=== PATIENT | female | born 1965 | race Caucasian/White ===

== ENCOUNTER → 2016-09-11 | Outpatient (CLI) | payer BC ==
[~2016-09-11] MED LIST: BIRTH CONTROL PO
== END ==
LOC: MC.RAD 07:00
DX: Z12.31 Encounter for screening mammogram for malignant neoplasm of breast (principal)

== ENCOUNTER → 2017-11-09 | Outpatient (CLI) | payer BC | LOC: MC.RAD 06:59 | DX: Z12.31 Encounter for screening mammogram for malignant neoplasm of breast (principal) ==

== ENCOUNTER → 2018-07-09 | Outpatient (CLI) | payer BC | LOC: COL.RAD 07-01 11:15 | DX: N92.1 Excessive and frequent menstruation with irregular cycle (principal); N85.8 Other specified noninflammatory disorders of uterus ==

== ENCOUNTER 2018-12-03 06:00 | Day surgery (SDC) | payer BC ==
[~2018-12-03] VITALS: Ht 170.2 cm; Wt 94.3 kg
--- NOTE | 2018-12-03 06:20 | NUR ---
PATIENT AMBULATED TO B[place] 1 WITHOUT DIFFICULTY. ALERT AND ORIENTED. VITAL SIGNS OBTAINED, WNL. ALL CONSENTS REVIEWED AND SIGNED. HEART SOUNDS REGULAR, LUNG SOUNDS CLEAR, BOWEL SOUNDS ACTIVE. CALL NGUYEN WITHIN REACH, WILL CONTINUE TO MONITOR.
[2018-12-03 06:27] VITALS: BP 136/85; PULSE 85; TEMP 98.3
[2018-12-03] MEDS ORDERED: VOLTAREN GEL 1%1 TU TP (06:41)
[2018-12-03] MEDS ORDERED: SYNTHROID0.137 MG PO (06:42)
[2018-12-03] MEDS ORDERED: AMOXICILLIN 8751 TAB PO (06:43)
[2018-12-03 07:30] VITALS: BP 131/79; PULSE 84; TEMP 97.5
--- NOTE | 2018-12-03 07:30 | NUR ---
pt to [place] [facility] from endo lab, walked to chair, in room, pt sips on water, call light in reach
[2018-12-03 07:45] VITALS: BP 131/79; PULSE 84
[2018-12-03 08:00] VITALS: BP 127/83; PULSE 80
--- NOTE | 2018-12-03 08:00 | NUR ---
con't same, Dr here at 0815 to talk with pt and . iv dc'd intact, pt up and dressed
--- NOTE | 2018-12-03 08:30 | NUR ---
pt up in room dressed, reviewed discharge inst. on followup call for biopsy results, activity and precautions after procedure with verbal understanding. pt discharged via w/c to car with staff and
== END 2018-12-03 08:30 | disposition home or self-care (01) ==
LOC: SDCO 06:00
DX: Z12.11 Encounter for screening for malignant neoplasm of colon (principal); D12.5 Benign neoplasm of sigmoid colon; Z86.010 Personal history of colon polyps; Z83.71 Family history of colonic polyps; Z80.0 Family history of malignant neoplasm of digestive organs; Z88.5 Allergy status to narcotic agent; Z88.2 Allergy status to sulfonamides
CPT/HCPCS: J2250; J2405; J3010; J7030

== ENCOUNTER → 2019-07-06 | Outpatient (CLI) | payer BC ==
[~2019-07-06] MED LIST changes: +AMOXICILLIN 8751 TAB PO; +SYNTHROID0.137 MG PO; +VOLTAREN GEL 1%1 TU TP
== END ==
LOC: MC.RAD 06-30 08:00
DX: Z12.31 Encounter for screening mammogram for malignant neoplasm of breast (principal)

== ENCOUNTER 2020-02-15 10:19 | Inpatient (IN) | payer BC ==
[~2020-02-15] VITALS: Ht 170.2 cm; Wt 92.6 kg
[2020-02-15 13:46] VITALS: BP 133/77; PULSE 86; TEMP 97.8
[2020-02-15] MEDS ORDERED: ESTRACE0.5 MG PO (13:49)
[2020-02-15] MEDS ORDERED: NEURONTIN100 MG/CAP PO (13:50)
[2020-02-15] MEDS ORDERED: TYLENOL 500MG500 MG PO (13:53)
[2020-02-15] MEDS ORDERED: CLARITIN 1010 MG/TAB PO (13:53)
[2020-02-15] MEDS ORDERED: FLEXERIL 1010 MG/TAB PO (13:54)
[2020-02-15] MEDS ORDERED: ROXICODONE 55 MG/TAB PO (13:55)
[2020-02-15] MEDS ORDERED: LIDODERM 5% PATC1 EA TP (13:57)
[2020-02-15] MEDS ORDERED: MIRALAX PA17 GM/Dose PO (13:58)
[2020-02-15] MEDS ORDERED: LOVENOX 4040 MG/0.4 SQ (13:59)
[2020-02-15] MEDS ORDERED: SYNTHROID0.125 MG/T PO (14:00)
[2020-02-15 16:53] VITALS: BP 135/71; PULSE 88; TEMP 98.8
[2020-02-16 05:09] VITALS: BP 134/72; PULSE 95; TEMP 99
--- NOTE | 2020-02-16 10:07 | NUR ---
Pt awake and alert upon entry, has some C/O pain, medications given for relief, shift assessments complete, left Pt call light in reach, sitting up in the recliner.
--- NOTE | 2020-02-16 12:21 | NUR ---
Pt has C/O breakthrough pain, given IV pain medications for relief.
[2020-02-16 16:12] VITALS: BP 120/78; PULSE 94; TEMP 99.7; TEMP 997.7
--- NOTE | 2020-02-16 16:20 | NUR ---
SW met with the patient to complete initial intake, as the patient is new to [facility]. The patient lives [place] [address] with her , Aguila (ph#[phone]). She reports independence with ADLs and that she may have a walker at home. She states that her mother has canes that she can use, if needed. The patient's PCP is Dr. Gayathri Alvarado and she receves her medications at [facility]. She reports no difficulties obtaining her meds. The patient reports that she may have advanced directives completed, but is unsure. She states that she would have designated her or one of her sisters. The patient plans to return home with her upon discharge. SW to continue to follow to ensure a safe discharge.
--- NOTE | 2020-02-16 21:00 | NUR ---
CHANGED DRSG UNDER LT RT BREAST INCISION. WELL APPROXIMATED. KM INTACT. OLD CHEST TUBE SITE STILL MOIST. OLD DRSG'S DAMP WITH ORTIZ OLD BLOOD DRG. NEW OCCLUSIVE DRSG TO CT SITE AND GAUZE DRSG UNDER RT BREAST. ZA WELL. ABRASION TO LT GROIN MOIST. TELFA DRSG APPLIED TO THIS AREA. MULTIPLE BRUISES NOTED.
[2020-02-16 22:35] VITALS: TEMP 98.7
[2020-02-17 05:15] VITALS: BP 107/58; PULSE 83; TEMP 98.6
[2020-02-17 05:18] VITALS: BP 107/58; PULSE 84; TEMP 98.6
[2020-02-17 06:00] VITALS: BP 107/58; PULSE 84; TEMP 98.6
[2020-02-17 07:43] LABS: HEMOGLOBIN 10.7 g/dl (12.5-16.0); MEAN CELL VOLUME 90 fl (80.0-100.0); MEAN CORPUSCULAR HEMOGLOBIN 28 pg (27.0-31.0); MEAN CORPUSCULAR HGB CONC 31 g/dl (33.0-37.0); MEAN PLATELET VOLUME 8.4 fl (7.4-10.4); PLATELET COUNT 358 K/mm3 (130-400); RED BLOOD COUNT 3.83 M/mm3 (4.10-5.30); REDCELL DISTRIBUTION WIDTH-CV 14.1 % (11.5-14.5)
[2020-02-17 07:47] LABS: HEMATOCRIT 34.4 % (37.0-47.0)
[2020-02-17 08:50] LABS: BAND 4 % (0-10); EOSINOPHIL 1 % (0-4); LYMPHOCYTE 15 % (20.0-51.0); NEUTROPHILS 74 % (42.0-75.2); NUCLEATED RED BLOOD CELL 1 (0-6); PLATELET ESTIMATE NORMAL (NORMAL)
[2020-02-17 18:29] VITALS: BP 118/66; PULSE 91; TEMP 99.2
--- NOTE | 2020-02-17 20:00 | NUR ---
INT NEEDLE DC'D FROM LT WRIST
--- NOTE | 2020-02-17 20:11 | NUR ---
Patient attended all therapies today. Pain was managed with prn pain meds. She reported that she wanted to have pain meds given to her in the morning prior to therapy by staff instead of having to ask for them. She was educated on the meds being prn, but that this nurse would ask for the spray dry operator to give prn pain meds prior to her morning therapies. She tolerated diet well. Reported off to night nurse.
[2020-02-18 05:32] VITALS: BP 112/58; PULSE 90; TEMP 97.6
--- NOTE | 2020-02-18 08:05 | NUR ---
Patient in bed resting. Alert and oriented x 3. Assessment complete. Patient has generalized bruising. RUE with splint. Dressing to right flank is CDI. Dressing to left lower flank is CDI. Toe on right foot taped, boot when out of bed. Requests pain meds for pain 6/10 Medications given per orders. Denies further needs at this.
[2020-02-18 16:55] VITALS: BP 126/75; PULSE 91; TEMP 97.4
--- NOTE | 2020-02-18 18:21 | NUR ---
Patient has done well throughout the day. Minimal needs, has been up to restroom with stand by assist and walker. Pain meds given throughout the day for generalized pain. Showered with therapy and linens changed. No further needs at this time. Will report off to bakery decorator.
--- NOTE | 2020-02-18 19:30 | NUR ---
PT UP TO BE WITH PLATFORM WALKER. SBA ASSIST. NO BM TODAY. HAD M[place]ALAX EARLIER. BACK TO RECLINER. DECLINED AMBULATION IN [place]. DEPRESSED AFFECT. CALL LIGHT IN REACH.
--- NOTE | 2020-02-18 22:00 | NUR ---
PT RESTING IN BED. HAD BEEN UP IN RECLINER. HAVING NEURAGIA TO LT ANT THIGH. AND GENEALIZED ACHES. SEE MAR FOR PAIN MED GIVEN. PT SEEM DEPRESSED TONIGHT. RELATES "JUST TIRED".
[2020-02-19 05:23] VITALS: BP 116/63; PULSE 88; TEMP 97.7
--- NOTE | 2020-02-19 06:17 | NUR ---
PT SLEEPING AT THIS TIME. NO DISTRESS.
--- NOTE | 2020-02-19 09:04 | NUR ---
UPON ENTRY TO THE ROOM THE PATIENT IS WORKED UP AND IN TEARS DUE TO HER PAIN. PATIENT STATES THAT SHE HAD REQUESTED PAIN MEDICATION AROUND 7AM. THIS NURSE WAS NOT NOTIFIED THAT THE PATIENT WAS NEEDING MEDICATION. PATIENT GIVEN PRN PO DOSE OF NORCO AT THIS TIME. WILL CONTINUE TO MONITOR.
[2020-02-19 17:41] VITALS: BP 131/68; PULSE 100; TEMP 97.7
--- NOTE | 2020-02-19 19:08 | NUR ---
REPORT GIVEN TO HELIO DUNN.
--- NOTE | 2020-02-19 20:00 | NUR ---
PT SITTING IN RECLINER. DISCUSSING SUPPORTIVE FRIENDS AND FAMILY. WEEPY. EMOTIONAL SUPPORT GIVEN. PT STILL C/O ABOUT INCREASED NERVE PAIN TO LT ANTERIOR THIGH. VERY SENSITIVE TO TOUCH. DRSG UNDER RT BREAST CHANGED. OLD CHEST TUBE SITE CDI. NO RESP DISTRESS. USING IS. SEE MAR FOR PAIN MEDS PROVIDED.
--- NOTE | 2020-02-19 22:30 | NUR ---
CHANGED DRSG TO INCISION UNDER RT BREAST WITH GAUZE 4X4. HEALING WELL. NO DRAINAGE. OLD CT SITE HAS OLD DRIED BLOOD. PT C/O NEW DISCOMFORT AREA TO RT LOWER FLANK. LUNGS REMAIN CLEAR. DENIES URINARY SYMPTOMS. WILL CONTINUE TO MONITOR.
[2020-02-20 07:44] VITALS: BP 129/67; PULSE 103; TEMP 98.4
--- NOTE | 2020-02-20 12:43 | NUR ---
ELENA COREY CALLED AND NOTIFIED THAT THE PATIENT IS HAVING ALOT OF NEUROPATHIC PAIN, PRIMARILY IN THE LEFT UPPER THIGH. SHE WILL STOP BY TO SEE THE PATIENT SOMETIME THIS AFTERNOON TO ASSESS THE PATIENT AND REVIEW MEDICATIONS.
--- NOTE | 2020-02-20 14:53 | NUR ---
DENIZ met with the patient to follow up after the weekend. The patient states that the weekend went fine and that she is making progress with therapy. Today is the patient's birthday. She states that she got lots of cards and some gifts. She plans to take a nap this afternoon. SW to continue to follow.
[2020-02-20 17:10] VITALS: BP 122/64; PULSE 98; TEMP 98.2
--- NOTE | 2020-02-20 19:57 | NUR ---
PATIENT HAD A GOOD DAY. PAIN MEDICATION PROVIDED NEEDED. PATIENT INDEPENDENT IN THE ROOM. PATIENT RESTING IN BED AT THIS TIME. REPORT GIVEN TO HELIO CHAPIN.
--- NOTE | 2020-02-20 20:15 | NUR ---
Received report from HELIO Cat. Pt currently sitting up in bed. Pt did request ice cream and HELIO Cat. took this to her. She has her call light within reach and her bed is in lowest position .
--- NOTE | 2020-02-21 01:30 | NUR ---
Pt requested something for pain at 2240. Pt was given (1) [place] fo9r pain at this time. Pt also stated that she was in a lot of pain and she requeste Flexeril she was given Flexeril 10mg for pain at this time. Pt slept well during the night. Pt called out at about 0118 requesting something for pain at 0123. Pt is currently lying in bed. She was given fresh water at this time. Pt has her call light within reach and her bed is in lowest position .
[2020-02-21 05:16] VITALS: BP 121/70; PULSE 83; TEMP 98
--- NOTE | 2020-02-21 07:53 | NUR ---
Reported off to HELIO Munoz. Pt is currently lying in bed and has her call light within reach.
--- NOTE | 2020-02-21 10:52 | NUR ---
Patient resting in bed at this time in between therapies. Given prn pain meds this am and they have been effective. Patient denies any questions at this time.
--- NOTE | 2020-02-21 10:53 | NUR ---
Call placed to Dr. Lizarraga to find out if they wanted to give any orders for dressing change to patients RUE. Awaiting a return call.
--- NOTE | 2020-02-21 15:22 | NUR ---
DENIZ met with the patient to discuss setting up a family meeting. A patient/family meeting was scheduled for tomorrow at [phone] with her on speaker phone for tomorrow, 02/21. DENIZ notified IPR Director. DENIZ to continue to follow.
--- NOTE | 2020-02-21 17:30 | NUR ---
Patient resting in bed call light in reach and by her side. Patient attended all therapies today, tolerated diet well this morning and afternoon, but did have her deliver pizza this evening. Patient given prn pain meds and they have been effective. Patient had a bowel movement this morning that was continent.
[2020-02-21 18:27] VITALS: BP 133/84; PULSE 102; TEMP 99.2
[2020-02-22 04:10] VITALS: BP 114/71; PULSE 90; TEMP 97.9
--- NOTE | 2020-02-22 04:36 | NUR ---
Patient has been resting in bed this shift. Patient has been able to handle own need in the restroom. Patient has requested pain medication as well as the muscle relaxer this shift. Patient has been afebrile. Vital signs stable.
--- NOTE | 2020-02-22 14:20 | NUR ---
DENIZ attended a patient/family meeting with patient and her , Aguila, on speaker phone. Also present was IPR Director, PT, OT. IPR Director started by explaining the purpose of the meeting. PT/OT then discussed the patient's progress and the teams recommendation of a discharge for tomorrow, 02/22, with a home exercise program and the need for a FWW with a platform. The patient and her were agreeable to the plan. The patient and her report that they already have platform and would just need the walker. Aguila plans to bring the platform in to get it attached to the walker before they return home. The team answered all questions. DENIZ then followed up with the patient to inquire where she would like to obtain the FWW. The patient chose [facility]. DENIZ contacted and faxed the FWW order to Jena at [facility]. Awaiting delivery of FWW.
[2020-02-22 18:05] VITALS: BP 127/86; PULSE 99; TEMP 98.9
--- NOTE | 2020-02-22 20:12 | NUR ---
Patient attended all therapies this shift. Tolerated diet well. Given prn pain meds as needed through day and were effective. Dr. Guerra's office returned my call and patient's dressing was removed and patient took pictures of wound and emailed them to Dr. Guerra's office. Frankie with Dr. Guerra's office ([phone]) called and requested that sutures to right wrist/forearm be removed. If there was no drainage incision could be left open to the air. Range of motion as tolerated and continue with non weight bearing to that area. This nurse voiced understanding and repeated back order. Sutures were removed by HELIO Baptiste and she applied steri strips to area. Patient requested that a dressing be placed over the area to provide some security. Incision only had bloody drainage observed to old dressing so dressing can be left open to air per Dr. Guerra's orders. This nurse applied a non adherent pad over incision and secured with gauze and arlette bandage. Patient tolerated well. This nurse reported off to night nurse asking that the day shift tomorrow make the follow up appointments for patient's PCP and to Dr. Lane and [facility]. Dr. Guerra's office will call patient to set up that appointment.
--- NOTE | 2020-02-22 21:00 | NUR ---
PT DROWSY. ORIENTED. VERBALIZES -FEELS READY TO GO HOME TOMORROW. HAVING OCCASIONAL BAD DREAMS. POSS PAIN MEDS? REMOVED GAUZE DRSG UNDER RT BREAST. INCISION CDI. OLD CT SITE SCABBED. DENIES NEED FOR PAIN MED. UP TO BR. VOIDS. BACK TO BED. NO NEEDS. MOD IN ROOM.
[2020-02-23 05:32] VITALS: BP 119/65; PULSE 88; TEMP 98.9
[2020-02-23] MEDS ORDERED: NEURONTIN100 MG/CAP PO (08:30)
[2020-02-23] MEDS ORDERED: TUMS500 MG PO (08:30)
[2020-02-23] MEDS ORDERED: LIDODERM 5% PATC1 EA TP (08:32)
[2020-02-23] MEDS ORDERED: FLEXERIL 1010 MG/TAB PO (08:33)
[2020-02-23] MEDS ORDERED: ZOFRAN ODT4 MG PO (08:39)
[2020-02-23] MEDS ORDERED: ROXICODONE 55 MG/TAB PO (08:39)
[2020-02-23] MEDS ORDERED: NORCO 325 MG-51 TAB PO (08:39)
--- NOTE | 2020-02-23 09:00 | NUR ---
Assessment completed, alert/oriented, vital signs stable, pain controlled, plans for discharge home today, denies needs, eating breakfast
--- NOTE | 2020-02-23 10:05 | NUR ---
SUSANA delivered the FWW to the patient's room. The patient is to discharge back home with her today, 02/22, with a home exercise program. No additional needs at this time.
--- NOTE | 2020-02-23 10:22 | NUR ---
Discharge instructions discusse and reviewed with the patient, instructed to follow up with PCP/ ortho/ trauma surgery as scheduled, discussed medicaitons and med changes/ scripts sent to [facility] for her, instructed on monitoring wounds /incisions for redness and s/s of infection, social work has arranged for to [facility], she is also set up with a handicap parking tag for her vehicle, her will be here around 1400 to pick her up, she denies other needs or concerns at this time
--- NOTE | 2020-02-23 14:12 | NUR ---
We are escorting the patient out of the building now by wheelchair, her is picking her up at the ER entrance
== END 2020-02-23 14:17 | disposition home or self-care (01) | DRG 561 ==
PROVIDERS: Nurse Practitioner Family; ADMIT Internal Medicine
DX: S52.601E Unspecified fracture of lower end of right ulna, subsequent encounter for open fracture type I or II with routine healing (principal); S22.43XD Multiple fractures of ribs, bilateral, subsequent encounter for fracture with routine healing; S32.401D Unspecified fracture of right acetabulum, subsequent encounter for fracture with routine healing; E03.9 Hypothyroidism, unspecified; D64.9 Anemia, unspecified; K59.00 Constipation, unspecified; R52 Pain, unspecified; Z79.1 Long term (current) use of non-steroidal anti-inflammatories (NSAID); Z79.891 Long term (current) use of opiate analgesic; Z96.651 Presence of right artificial knee joint; V89.2XXD Person injured in unspecified motor-vehicle accident, traffic, subsequent encounter; Z88.2 Allergy status to sulfonamides; Z88.6 Allergy status to analgesic agent
CPT/HCPCS: 99222-AI; 99231-AI; 99232-AI; 99239; J1650; J2270

== ENCOUNTER 2020-07-30 16:00 | Outpatient (RCR) | payer OTHER, BC ==
[~2020-07-30 16:00] MED LIST changes: +CLARITIN 1010 MG/TAB PO; +ESTRACE0.5 MG PO; +FLEXERIL 1010 MG/TAB PO; +LIDODERM 5% PATC1 EA TP; +LOVENOX 4040 MG/0.4 SQ; +MIRALAX PA17 GM/Dose PO; +NEURONTIN100 MG/CAP PO; +NORCO 325 MG-51 TAB PO; +ROXICODONE 55 MG/TAB PO; +SYNTHROID0.125 MG/T PO; +TUMS500 MG PO; +TYLENOL 500MG500 MG PO; +ZOFRAN ODT4 MG PO
== END 2020-07-31 | disposition home or self-care (01) ==
LOC: WSC
DX: T14.90XA Injury, unspecified, initial encounter (principal)

== ENCOUNTER → 2020-08-17 | Outpatient (CLI) | payer BC | LOC: COL.RAD 07:38 | DX: M25.532 Pain in left wrist (principal); S73.101A Unspecified sprain of right hip, initial encounter | CPT/HCPCS: A9585; Q9967 ==

== ENCOUNTER 2020-09-06 14:45 | Outpatient (RCR) | payer OTHER, BC | END 2020-09-10 | LOC: WSPT | DX: T14.90XA Injury, unspecified, initial encounter (principal) ==

== ENCOUNTER 2020-09-11 13:42 | Outpatient (RCR) | payer OTHER, BC | END 2020-10-16 09:21 | disposition home or self-care (01) | LOC: WSPT 13:42 | DX: M25.532 Pain in left wrist (principal) ==

== ENCOUNTER → 2020-09-26 | Outpatient (CLI) | payer BC | LOC: MC.RAD 08:00 | DX: Z12.31 Encounter for screening mammogram for malignant neoplasm of breast (principal) ==

== ENCOUNTER 2020-10-05 08:00 | Outpatient (RCR) | payer OTHER, BC | END 2020-10-30 13:09 | disposition home or self-care (01) | LOC: WSOT 08:00 | DX: M25.532 Pain in left wrist (principal) ==

== ENCOUNTER → 2021-11-01 | Outpatient (CLI) | payer BC | LOC: MC.RAD 08:00 | DX: N60.01 Solitary cyst of right breast (principal) ==

== ENCOUNTER → 2023-01-13 | Outpatient (CLI) | payer BC | LOC: MC.RAD 09:50 | DX: Z12.31 Encounter for screening mammogram for malignant neoplasm of breast (principal) ==

== ENCOUNTER → 2024-02-03 | Outpatient (CLI) | payer BC | LOC: MC.RAD 08:00 | DX: Z12.31 Encounter for screening mammogram for malignant neoplasm of breast (principal) ==